=== PATIENT | female | born 1950 | race African-American/Black ===

== ENCOUNTER 2017-05-04 06:18 | Emergency (ER) | payer OTHER, SELFPAY ==
[~2017-05-04] VITALS: Ht 175.3 cm; Wt 71.0 kg
[2017-05-04] MEDS ORDERED: ACETAMINOPHEN 325MG TABLET PO ONE (09:15)
[2017-05-04 11:10] VITALS: BP 168/88
== END 2017-05-04 11:12 | disposition home or self-care (01) ==
LOC: ER 08:26
DX: M79.605 Pain in left leg (principal); M79.604 Pain in right leg; M54.5 Low back pain; M16.0 Bilateral primary osteoarthritis of hip; W11.XXXA Fall on and from ladder, initial encounter; Y92.098 Other place in other non-institutional residence as the place of occurrence of the external cause; I10 Essential (primary) hypertension; E11.9 Type 2 diabetes mellitus without complications; Z90.710 Acquired absence of both cervix and uterus
CPT/HCPCS: 72110; 72170; 73552; 73590; 99284

== ENCOUNTER 2018-07-29 07:29 | Emergency (ER) | payer MEDICARE, OTHER ==
[~2018-07-29] VITALS: Ht 175.3 cm; Wt 62.0 kg
[2018-07-29] MEDS ORDERED: SODIUM CHLORIDE 0.9% 1,000 ML IV ONE (08:37)
[2018-07-29 09:04] LABS: BG BASE EXCESS 0.9 mmol/L (-2.0-2.0); BG CARBOXYHEMOGLOBIN 0.9 % (0.5-1.5); BG DEOXYHEMOGLOBIN 4.1 % (0.0-5.0); BG FRACTION INSPIRED OXYGEN 21; BG HCO3 ACT 24.7 mmol/L (22.0-26.0); BG METHEMOGLOBIN 0.3 % (0.0-1.5); BG OXYGEN SATURATION 95.9 % (92.0-98.5); BG OXYHEMOGLOBIN 94.7 % (94.0-97.0); BG PCO2 36.2 mmHg (35.0-45.0); BG PH 7.452 (7.350-7.450); BG PO2 78.1 mmHg (75.0-100.0); BG SAMPLE SITE RIGHT RADIAL; BG TOTAL HEMOGLOBIN 10.3 g/dL (12.0-18.0); BG VENT MODE ROOM AIR
[2018-07-29 09:21] LABS: CHLORIDE 98 mEq/L (98-107)
[2018-07-29 09:57] VITALS: BP 127/58
== END 2018-07-29 10:29 | disposition home or self-care (01) ==
LOC: ER 07:29
DX: E11.65 Type 2 diabetes mellitus with hyperglycemia (principal); T38.3X5A Adverse effect of insulin and oral hypoglycemic [antidiabetic] drugs, initial encounter; I10 Essential (primary) hypertension; F12.10 Cannabis abuse, uncomplicated; Z88.2 Allergy status to sulfonamides; Z79.84 Long term (current) use of oral hypoglycemic drugs; Z85.9 Personal history of malignant neoplasm, unspecified; Y92.018 Other place in single-family (private) house as the place of occurrence of the external cause
CPT/HCPCS: 36415; 36600; 80048; 82375; 82805; 82962; 96360; 99284; J7030

== ENCOUNTER 2019-01-22 18:01 | Inpatient (IN) | payer MEDICARE ==
[~2019-01-22] VITALS: Ht 172.7 cm; Wt 45.8 kg
[~2019-01-22 18:01] MED LIST: metformin; novolin
[2019-01-22 19:07] LABS: MEAN CORPUSCULAR HEMOGLOBIN 21.2 pg (28.0-32.0); MEAN CORPUSCULAR VOLUME 64.1 fL (81.0-99.0); RED BLOOD CELL COUNT 2.72 mill/uL (4.2-5.4); RED CELL DISTRIBUTION WIDTH 19.5 % (11.6-14.6)
[2019-01-22 19:12] LABS: CHLORIDE 105 mEq/L (98-107)
[2019-01-22 19:17] LABS: ETHANOL BLOOD < 10 mg/dL
[2019-01-22 19:19] LABS: LDL CHOLESTEROL 67 mg/dL (5-100)
[2019-01-22 19:20] LABS: HEMOGLOBIN. 5.7 g/dL (12.0-16.0)
[2019-01-22 19:21] LABS: HEMATOCRIT. 17.4 % (36.0-48.0)
[2019-01-22 19:22] LABS: D-DIMER 10.62 mg/L FEU (<0.50); INR 1.2; PROTHROMBIN TIME 12.1 sec (9.6-11.0)
[2019-01-22] MEDS ORDERED: ACETAMINOPHEN 325MG TABLET PO ONE (20:30)
[2019-01-22] MEDS ORDERED: MAGNESIUM/ALUMINUM HYDROXIDE/SIMETHICONE 30ML UDC PO PRN (20:45)
[2019-01-22] MEDS ORDERED: DIPHENHYDRAMINE 50MG/ML VIAL IV PRN (20:45)
[2019-01-22] MEDS ORDERED: LORAZEPAM 2MG/ML CPJ IV PRN (20:45)
[2019-01-22] MEDS ORDERED: IPRATROPIUM/ALBUTEROL 0.5-3(2.5)MG/3ML NEB INH PRN (20:45)
[2019-01-22] MEDS ORDERED: DOCUSATE SODIUM 100MG CAPSULE PO PRN (20:45)
[2019-01-22] MEDS ORDERED: GUAIFENESIN 200MG/10ML SUGAR FREE UDC PO PRN (20:45)
[2019-01-22] MEDS ORDERED: DEXTROSE 50% WATER 50ML SYRINGE IV PRN (20:45)
[2019-01-22] MEDS ORDERED: ONDANSETRON HCL 4MG/2ML INJ IV PRN (20:45)
[2019-01-22] MEDS ORDERED: HYDROMORPHONE HCL/PF 2MG/ML CPJ IV PRN (20:45)
[2019-01-22] MEDS ORDERED: HYDRALAZINE 20MG/ML VIAL IV PRN (20:45)
[2019-01-22] MEDS ORDERED: ACETAMINOPHEN 325MG TABLET PO PRN (20:45)
[2019-01-22 20:48] LABS: NUCLEATED RED BLOOD CELLS 2 /100 WBC
[2019-01-22 20:52] LABS: PLATELET ESTIMATE NORMAL
[2019-01-22 20:56] LABS: MEAN PLATELET VOLUME 8.5 fl (7.4-10.4); PLATELET 155 x1000/uL (130-400)
[2019-01-22 22:59] LABS: CREATINE KINASE 254 IU/L (26-192)
[2019-01-22 23:01] LABS: CREATINE KINASE MB FRACTION < 1.0 ng/mL (0.5-3.6)
[2019-01-22 23:52] VITALS: BP 148/82
[2019-01-23] VITALS (12 sets, daily range): BP systolic 135–169; BP diastolic 63–84
[2019-01-23] MEDS ORDERED: SODIUM CHLORIDE 0.9% INJ 3ML FLUSH IVF SCH
[2019-01-23] MEDS: HYDROCODONE/ACETAMINOPHEN 5/325MG TABLET PO PRN ×4 (00:28→20:43)
[2019-01-23 03:51] LABS: BASOPHILS % 0.2 % (0.0-2.0); EOSINOPHILS % 0.1 % (0.0-5.0); LYMPHOCYTES % 10.1 % (20.0-50.0); MEAN CORPUSCULAR HEMOGLOBIN 22.4 pg (28.0-32.0); MEAN PLATELET VOLUME 8.4 fl (7.4-10.4); NEUTROPHILS % 84.6 % (40.0-76.0); PLATELET 138 x1000/uL (130-400); RED BLOOD CELL COUNT 2.93 mill/uL (4.2-5.4); RED CELL DISTRIBUTION WIDTH 22.7 % (11.6-14.6)
[2019-01-23 03:57] LABS: CHLORIDE 110 mEq/L (98-107)
[2019-01-23 04:00] LABS: HEMATOCRIT. 19.9 % (36.0-48.0); HEMOGLOBIN. 6.6 g/dL (12.0-16.0)
[2019-01-23 04:08] LABS: CREATINE KINASE 225 IU/L (26-192)
[2019-01-23 04:09] LABS: CREATINE KINASE MB FRACTION < 1.0 ng/mL (0.5-3.6)
[2019-01-23] MEDS: SODIUM CHLORIDE 0.9% INJ 3ML FLUSH IVF SCH ×3 (04:15→20:43)
[2019-01-23 04:21] LABS: PLATELET ESTIMATE NORMAL
[2019-01-23] MEDS: BLOOD SUGAR DIAGNOSTIC STRIP TEST SCH ×4 (05:47→20:43)
[2019-01-23 06:13] LABS: CLARITY URINE CLEAR (CLEAR); COLOR URINE YELLOW (YELLOW); KETONES URINE 1+ (NEGATIVE); LEUKOCYTE ESTERASE URINE 2+ (NEGATIVE); NITRITE URINE NEGATIVE (NEGATIVE); OCCULT BLOOD URINE NEGATIVE (NEGATIVE); PROTEIN URINE TRACE (NEGATIVE); SPECIFIC GRAVITY URINE 1.021 (1.005-1.030)
[2019-01-23 06:30] LABS: *AMPHETAMINES SCREEN URINE NEGATIVE (NEGATIVE); *BARBITURATES SCREEN URINE NEGATIVE (NEGATIVE); *BENZODIAZEPINES SCREEN URINE NEGATIVE (NEGATIVE); *COCAINE SCREEN URINE NEGATIVE (NEGATIVE); CANNABINOID URINE SCREEN PRESUMTIVE POSITIVE (NEGATIVE); METHADONE URINE SCREEN NEGATIVE (NEGATIVE); OPIATES URINE SCREEN PRESUMTIVE POSITIVE (NEGATIVE); PHENCYCLIDINE URINE SCREEN NEGATIVE (NEGATIVE)
[2019-01-23] MEDS: INSULIN LISPRO 100 UNITS/ML SUBCUT SCH ×4 (08:10→21:38)
[2019-01-23 13:44] LABS: HEMATOCRIT 22.4 % (36.0-48.0); HEMOGLOBIN 7.6 g/dL (12.0-16.0)
[2019-01-23] MEDS ORDERED: GADOBENATE DIMEGLUMINE 529 MG/ML 10ML IV ONE (14:01)
[2019-01-23] MEDS ORDERED: SORBITOL 70% SOLN 30ML PO SCH ×2 (18:15→22:00)
[2019-01-23] MEDS: POLYVINYL ALCOHOL OPHTH DROPS 15ML RIGHTEYE SCH ×2 (18:50→20:43)
[2019-01-23] MEDS ORDERED: DIATR MEGLU/DIATRIZOATE SOLN 30ML PO NR (20:30)
[2019-01-23] MEDS: CLONIDINE 0.1MG TABLET PO PRN (20:43)
[2019-01-23] MEDS: PANTOPRAZOLE SODIUM 40 MG/VIAL IV SCH (20:43)
[2019-01-24] VITALS: BP 148/81
[2019-01-24 04:00] VITALS: BP 129/70
[2019-01-24] MEDS: BLOOD SUGAR DIAGNOSTIC STRIP TEST SCH ×4 (05:33→21:00)
[2019-01-24] MEDS: SODIUM CHLORIDE 0.9% INJ 3ML FLUSH IVF SCH ×3 (05:34→22:18)
[2019-01-24] MEDS: INSULIN LISPRO 100 UNITS/ML SUBCUT SCH ×4 (05:49→22:31)
[2019-01-24] MEDS ORDERED: DIATR MEGLU/DIATRIZOATE SOLN 30ML PO SCH (06:35)
[2019-01-24 08:00] VITALS: BP 132/70
[2019-01-24] MEDS: POLYVINYL ALCOHOL OPHTH DROPS 15ML RIGHTEYE SCH ×4 (08:08→22:17)
[2019-01-24] MEDS: PANTOPRAZOLE SODIUM 40 MG/VIAL IV SCH ×2 (08:08→22:17)
[2019-01-24] MEDS ORDERED: IOHEXOL-300 100 ML BOTTLE ONE (09:33)
[2019-01-24 10:36] LABS: INR 1.3; PROTHROMBIN TIME 12.7 sec (9.6-11.0)
[2019-01-24 10:46] LABS: CHLORIDE 111 mEq/L (98-107)
[2019-01-24] MEDS ORDERED: POTASSIUM CHLORIDE 20MEQ TABLET SR PO SCH (11:45)
[2019-01-24] MEDS ORDERED: METOCLOPRAMIDE HCL 10MG/2ML VIAL IV SCH (11:45)
[2019-01-24 12:00] VITALS: BP 115/85
[2019-01-24 16:00] VITALS: BP 175/82
[2019-01-24] MEDS ORDERED: MIDAZOLAM HCL 5 MG/5 ML VIAL ONE (16:59)
[2019-01-24] MEDS ORDERED: FENTANYL CITRATE/PF 50MCG/ML 2ML VIAL ONE (16:59)
[2019-01-24] MEDS ORDERED: MIDAZOLAM HCL 5 MG/5 ML VIAL IV PRN (17:00)
[2019-01-24] MEDS: CLONIDINE 0.1MG TABLET PO PRN (18:37)
[2019-01-24] MEDS: HYDROCODONE/ACETAMINOPHEN 5/325MG TABLET PO PRN ×2 (18:38→22:39)
[2019-01-24 20:00] VITALS: BP 113/68
[2019-01-25] VITALS (8 sets, daily range): BP systolic 132–158; BP diastolic 70–84
[2019-01-25] MEDS: HYDROCODONE/ACETAMINOPHEN 5/325MG TABLET PO PRN ×4 (04:17→22:42)
[2019-01-25] MEDS: SODIUM CHLORIDE 0.9% INJ 3ML FLUSH IVF SCH ×3 (05:41→22:00)
[2019-01-25 06:04] LABS: BASOPHILS % 0.2 % (0.0-2.0); EOSINOPHILS % 0.2 % (0.0-5.0); HEMATOCRIT. 21.6 % (36.0-48.0); HEMOGLOBIN. 7.1 g/dL (12.0-16.0); LYMPHOCYTES % 13.6 % (20.0-50.0); MEAN CORPUSCULAR HEMOGLOBIN 23.1 pg (28.0-32.0); MEAN CORPUSCULAR VOLUME 70.3 fL (81.0-99.0); MONOCYTES % 5.2 % (2.0-8.0); NEUTROPHILS % 80.8 % (40.0-76.0); RED BLOOD CELL COUNT 3.08 mill/uL (4.2-5.4); RED CELL DISTRIBUTION WIDTH 23.6 % (11.6-14.6)
[2019-01-25] MEDS: BLOOD SUGAR DIAGNOSTIC STRIP TEST SCH ×4 (06:24→21:00)
[2019-01-25 06:30] LABS: CHLORIDE 110 mEq/L (98-107)
[2019-01-25] MEDS: PANTOPRAZOLE SODIUM 40 MG/VIAL IV SCH ×2 (10:11→22:00)
[2019-01-25] MEDS: INSULIN LISPRO 100 UNITS/ML SUBCUT SCH ×4 (10:12→22:41)
[2019-01-25] MEDS: POLYVINYL ALCOHOL OPHTH DROPS 15ML RIGHTEYE SCH ×4 (10:12→22:00)
[2019-01-25 10:34] LABS: PLATELET 84 x1000/uL (130-400)
[2019-01-26] VITALS (10 sets, daily range): BP systolic 124–163; BP diastolic 71–92
[2019-01-26] MEDS: SODIUM CHLORIDE 0.9% INJ 3ML FLUSH IVF SCH ×2 (06:04→13:37)
[2019-01-26] MEDS: BLOOD SUGAR DIAGNOSTIC STRIP TEST SCH ×2 (06:04→11:55)
[2019-01-26] MEDS: HYDROCODONE/ACETAMINOPHEN 5/325MG TABLET PO PRN ×2 (06:07→09:34)
[2019-01-26 07:29] LABS: INR 1.3
[2019-01-26 07:47] LABS: HEMATOCRIT 27.2 % (36.0-48.0); HEMOGLOBIN 9.1 g/dL (12.0-16.0); MEAN CORPUSCULAR HEMOGLOBIN 24.1 pg (28.0-32.0); MEAN CORPUSCULAR VOLUME 71.7 fL (81.0-99.0); RED CELL DISTRIBUTION WIDTH 23.5 % (11.6-14.6)
[2019-01-26] MEDS: POLYVINYL ALCOHOL OPHTH DROPS 15ML RIGHTEYE SCH ×2 (08:29→12:47)
[2019-01-26] MEDS: PANTOPRAZOLE SODIUM 40 MG/VIAL IV SCH (08:29)
[2019-01-26] MEDS: CLONIDINE 0.1MG TABLET PO PRN (08:30)
[2019-01-26] MEDS: INSULIN LISPRO 100 UNITS/ML SUBCUT SCH ×2 (08:38→12:48)
[2019-01-26 14:46] LABS: PLATELET 72 x1000/uL (130-400)
== END 2019-01-26 15:19 | disposition home or self-care (01) | DRG 123 ==
LOC: EDBEDREQ 18:35 → ER 19:16 → 7WST 19:46 → EDBEDREQSVC 19:52 → EDBEDREQTM 19:52 → EDBEDREQ 19:52 → ENRESERV 22:18
PROVIDERS: ADMIT Internal Medicine; ATTEND Internal Medicine
PROC: 30233N1 Transfusion of Nonautologous Red Blood Cells into Peripheral Vein, Percutaneous Approach (ICD-10-PCS; principal; 2019-01-22)
PROC: 0DB68ZX Excision of Stomach, Via Natural or Artificial Opening Endoscopic, Diagnostic (ICD-10-PCS; 2019-01-24)
PROC: 0DJD8ZZ Inspection of Lower Intestinal Tract, Via Natural or Artificial Opening Endoscopic (ICD-10-PCS; 2019-01-24)
DX: H49.01 Third [oculomotor] nerve palsy, right eye (principal); E43 Unspecified severe protein-calorie malnutrition; C79.51 Secondary malignant neoplasm of bone; C78.7 Secondary malignant neoplasm of liver and intrahepatic bile duct; J90 Pleural effusion, not elsewhere classified; Z68.1 Body mass index [BMI] 19.9 or less, adult; H02.401 Unspecified ptosis of right eyelid; D50.9 Iron deficiency anemia, unspecified; I10 Essential (primary) hypertension; E11.9 Type 2 diabetes mellitus without complications; C50.919 Malignant neoplasm of unspecified site of unspecified female breast; H70.92 Unspecified mastoiditis, left ear; K44.9 Diaphragmatic hernia without obstruction or gangrene; K64.8 Other hemorrhoids; K59.00 Constipation, unspecified; K80.20 Calculus of gallbladder without cholecystitis without obstruction; N20.0 Calculus of kidney; N28.1 Cyst of kidney, acquired; M19.90 Unspecified osteoarthritis, unspecified site; Z85.3 Personal history of malignant neoplasm of breast; Z86.73 Personal history of transient ischemic attack (TIA), and cerebral infarction without residual deficits; Z79.899 Other long term (current) drug therapy; Z88.2 Allergy status to sulfonamides; Z88.8 Allergy status to other drugs, medicaments and biological substances; Z92.21 Personal history of antineoplastic chemotherapy; K29.70 Gastritis, unspecified, without bleeding
CPT/HCPCS: 36415; 36430; 70540; 70553; 71045; 71260; 74177; 80048; 80305; 80320; 82465; 82550; 82553; 82962; 83036; 83721; 83880; 84443; 84484; 85014; 85018; 85027; 85379; 85384; 86850; 86900; 86920; 88305; 88312; 88313; 93005; 93970; 97116; 97162; 97530; 99152; 99285; A9577; C9113; J1815; J2250; J2765; J3010; J7040; J7050; P9016; Q9963; Q9967; G0480; G0500

== ENCOUNTER 2019-02-12 13:30 | Inpatient (IN) | payer MEDICARE, OTHER ==
[~2019-02-12] VITALS: Ht 165.1 cm; Wt 66.2 kg
[2019-02-12] MEDS ORDERED: NOREPINEPHRINE 4 MG in DEXT 5% WATER 250 ML IV STA (13:47)
[2019-02-12] MEDS ORDERED: NOREPINEPHRINE 4MG/250ML PMX 250 ML IV ONE ×2 (14:00→18:53)
[2019-02-12] MEDS ORDERED: SODIUM CHLORIDE 0.9% 1000ML BAG (SEPSIS BOLUS) IV ONE (14:00)
[2019-02-12] MEDS ORDERED: VECURONIUM BROMIDE 10 MG/VIAL IV ONE ×2 (14:04→15:00)
[2019-02-12] MEDS ORDERED: SUCCINYLCHOLINE CHLORIDE 200MG/10ML IV ONE ×2 (14:04→14:30)
[2019-02-12] MEDS ORDERED: ETOMIDATE 2MG/ML 10ML VIAL IV ONE ×2 (14:04→14:30)
[2019-02-12] MEDS ORDERED: PROPOFOL 10MG/ML 100ML 100 ML IV ONE (14:30)
[2019-02-12] MEDS ORDERED: LEVOFLOXACIN 500MG PREMIX 100 ML IV ONE (14:30)
[2019-02-12] MEDS ORDERED: PIPERACILLIN/TAZ 3.375G PREMIX 50 ML IV ONE (14:30)
[2019-02-12] MEDS ORDERED: MORPHINE SULFATE 10 MG/ML CPJ IV ONE (14:30)
[2019-02-12 14:35] LABS: BG BASE EXCESS -13.8 mmol/L (-2.0-2.0); BG CARBOXYHEMOGLOBIN 1.6 % (0.5-1.5); BG DEOXYHEMOGLOBIN 0.2 % (0.0-5.0); BG HCO3 ACT 12.1 mmol/L (22.0-26.0); BG METHEMOGLOBIN 0.3 % (0.0-1.5); BG OXYGEN SATURATION 99.8 % (92.0-98.5); BG OXYHEMOGLOBIN 97.9 % (94.0-97.0); BG PCO2 27.6 mmHg (35.0-45.0); BG PH 7.258 (7.350-7.450); BG PO2 419.7 mmHg (75.0-100.0); BG SAMPLE SITE RIGHT RADIAL; BG TIDAL VOLUME(mL) 450 mL; BG TOTAL HEMOGLOBIN 4.7 g/dL (12.0-18.0); BG VENT MODE VENT - A/C; BG VENT RATE 14 set
[2019-02-12 14:38] LABS: CHLORIDE 111 mEq/L (98-107)
[2019-02-12 14:39] LABS: MEAN CORPUSCULAR HEMOGLOBIN 24.4 pg (28.0-32.0); MEAN CORPUSCULAR VOLUME 75.4 fL (81.0-99.0); MEAN PLATELET VOLUME 8.6 fl (7.4-10.4); RED BLOOD CELL COUNT 1.97 mill/uL (4.2-5.4); RED CELL DISTRIBUTION WIDTH 25.5 % (11.6-14.6)
[2019-02-12 14:40] LABS: INR 1.5; PARTIAL THROMBOPLASTIN TIME 23.1 sec (23.4-31.0); PROTHROMBIN TIME 14.8 sec (9.6-11.0)
[2019-02-12 14:41] LABS: HEMATOCRIT. 14.9 % (36.0-48.0); HEMOGLOBIN. 4.8 g/dL (12.0-16.0); PLATELET 38 x1000/uL (130-400)
[2019-02-12] MEDS ORDERED: SODIUM BICARBONATE 8.4% 1 MEQ/ML 50ML SYR IV ONE (14:45)
[2019-02-12] MEDS ORDERED: PANTOPRAZOLE SODIUM 40 MG/VIAL IV NR (15:00)
[2019-02-12] MEDS ORDERED: PHYTONADIONE 10MG/ML AMP IM ONE (15:15)
[2019-02-12] MEDS ORDERED: SODIUM CHLORIDE 0.9% 1,000 ML IV SCH (15:26)
[2019-02-12] MEDS ORDERED: OCTREOTIDE 1,000 MCG in SODIUM CHLORIDE 0.9% 100 ML IV PRN (15:30)
[2019-02-12] MEDS ORDERED: ACETAMINOPHEN 325MG TABLET PO PRN (15:30)
[2019-02-12] MEDS ORDERED: ACETAMINOPHEN 650MG SUPP PR PRN (15:30)
[2019-02-12] MEDS ORDERED: DOCUSATE SODIUM 100MG CAPSULE PO PRN (15:30)
[2019-02-12] MEDS ORDERED: IPRATROPIUM/ALBUTEROL 0.5-3(2.5)MG/3ML NEB INH PRN (15:30)
[2019-02-12] MEDS ORDERED: PIPERACILLIN/TAZ 3.375G PREMIX 50 ML IV SCH (15:30)
[2019-02-12] MEDS ORDERED: ACETAMINOPHEN 650MG/20.3ML UDC GT PRN (15:30)
[2019-02-12] MEDS ORDERED: IPRATROPIUM/ALBUTEROL 0.5-3(2.5)MG/3ML NEB INH SCH (15:30)
[2019-02-12] MEDS ORDERED: DIPHENHYDRAMINE 50MG/ML VIAL IV PRN (15:30)
[2019-02-12] MEDS ORDERED: CLONIDINE 0.1MG TABLET PO PRN (15:30)
[2019-02-12] MEDS ORDERED: GUAIFENESIN 200MG/10ML SUGAR FREE UDC PO PRN (15:30)
[2019-02-12] MEDS ORDERED: SODIUM BICARBONATE 50 MEQ in DEXTROSE 5% WATER 1,000 ML IV SCH (15:30)
[2019-02-12] MEDS ORDERED: MAGNESIUM/ALUMINUM HYDROXIDE/SIMETHICONE 30ML UDC PO PRN (15:30)
[2019-02-12] MEDS ORDERED: NOREPINEPHRINE 4 MG in DEXT 5% WATER 246 ML IV PRN (15:30)
[2019-02-12] MEDS ORDERED: ONDANSETRON HCL 4MG/2ML INJ IV PRN (15:30)
[2019-02-12 16:28] LABS: NUCLEATED RED BLOOD CELLS 4 /100 WBC; PLATELET ESTIMATE MARKEDLY DECREASED
[2019-02-12] MEDS ORDERED: NOREPINEPHRINE 4MG/250ML PMX 250 ML IV PRN (18:54)
[2019-02-12 18:56] LABS: HEMATOCRIT 25.9 % (36.0-48.0); HEMOGLOBIN 8.6 g/dL (12.0-16.0); MEAN CORPUSCULAR HEMOGLOBIN 25.9 pg (28.0-32.0); MEAN CORPUSCULAR VOLUME 77.9 fL (81.0-99.0); RED BLOOD CELL COUNT 3.32 mill/uL (4.2-5.4); RED CELL DISTRIBUTION WIDTH 20.6 % (11.6-14.6)
[2019-02-12 18:58] LABS: CHLORIDE 111 mEq/L (98-107)
[2019-02-12 19:09] LABS: PLATELET 24 x1000/uL (130-400)
[2019-02-12] MEDS ORDERED: SODIUM BICARBONATE 100 MEQ in DEXTROSE 5% WATER 1,000 ML IV SCH (20:45)
[2019-02-12] MEDS ORDERED: NA PHOS,M-B/NA PHOS,DI-BA ENEMA 118ML PR PRN (21:00)
[2019-02-12 21:05] LABS: BG CARBOXYHEMOGLOBIN 1.2 % (0.5-1.5); BG DEOXYHEMOGLOBIN 3.5 % (0.0-5.0); BG FRACTION INSPIRED OXYGEN 40; BG HCO3 ACT 18.8 mmol/L (22.0-26.0); BG METHEMOGLOBIN 0.2 % (0.0-1.5); BG OXYGEN SATURATION 96.5 % (92.0-98.5); BG OXYHEMOGLOBIN 95.1 % (94.0-97.0); BG PCO2 34.6 mmHg (35.0-45.0); BG PH 7.352 (7.350-7.450); BG PO2 87.2 mmHg (75.0-100.0); BG SAMPLE SITE RIGHT RADIAL; BG TIDAL VOLUME(mL) 450 mL; BG TOTAL HEMOGLOBIN 12.2 g/dL (12.0-18.0); BG VENT MODE VENT - A/C; BG VENT RATE 12 set
[2019-02-12] MEDS ORDERED: METRONIDAZOLE 500 MG PREMIX 100 ML IV SCH (22:00)
[2019-02-12 23:15] VITALS: BP 118/67
[2019-02-12 23:30] VITALS: BP 116/68
[2019-02-12] MEDS ORDERED: NOREPINEPHRINE 4 MG in DEXTROSE 5% WATER 250 ML IV PRN (23:30)
[2019-02-12 23:45] VITALS: BP 119/64
[2019-02-12] MEDS ORDERED: PROPOFOL 10MG/ML 100ML 100 ML IV PRN (23:45)
[2019-02-13] VITALS (93 sets, daily range): BP systolic 93–130; BP diastolic 59–81
[2019-02-13] MEDS ORDERED: IPRATROPIUM/ALBUTEROL 0.5-3(2.5)MG/3ML NEB INH SCH
[2019-02-13] MEDS: METRONIDAZOLE 500 MG PREMIX 100 ML IV SCH ×4 (00:22→23:56)
[2019-02-13] MEDS: IPRATROPIUM/ALBUTEROL 0.5-3(2.5)MG/3ML NEB HHN SCH ×6 (00:23→20:49)
[2019-02-13] MEDS ORDERED: OCTREOTIDE 1,000 MCG in SODIUM CHLORIDE 0.9% 100 ML IV SCH (01:00)
[2019-02-13] MEDS: OCTREOTIDE 1,000 MCG in SODIUM CHLORIDE 0.9% 98 ML IV SCH (01:16)
[2019-02-13] MEDS ORDERED: VANCOMYCIN 1 G PREMIX 200 ML IV NR (03:00)
[2019-02-13] MEDS: PIPERACILLIN/TAZ 3.375G PREMIX 50 ML IV SCH ×3 (03:04→17:48)
[2019-02-13 05:41] LABS: HEMATOCRIT. 33.9 % (36.0-48.0); HEMOGLOBIN. 11.7 g/dL (12.0-16.0); MEAN CORPUSCULAR HEMOGLOBIN 27.4 pg (28.0-32.0); MEAN CORPUSCULAR VOLUME 79.9 fL (81.0-99.0); RED BLOOD CELL COUNT 4.25 mill/uL (4.2-5.4); RED CELL DISTRIBUTION WIDTH 18.2 % (11.6-14.6)
[2019-02-13] MEDS: SODIUM CHLORIDE 0.9% INJ 3ML FLUSH IVF SCH ×3 (05:58→22:11)
[2019-02-13 06:12] LABS: CHLORIDE 110 mEq/L (98-107)
[2019-02-13 06:32] LABS: HDL CHOLESTEROL 20 mg/dL (40-59)
[2019-02-13 06:35] LABS: LDL CHOLESTEROL 44 mg/dL (5-100)
[2019-02-13 07:20] LABS: BG CARBOXYHEMOGLOBIN 1.2 % (0.5-1.5); BG DEOXYHEMOGLOBIN 2.1 % (0.0-5.0); BG HCO3 ACT 18.6 mmol/L (22.0-26.0); BG METHEMOGLOBIN 0.2 % (0.0-1.5); BG OXYGEN SATURATION 97.9 % (92.0-98.5); BG OXYHEMOGLOBIN 96.5 % (94.0-97.0); BG PCO2 30.1 mmHg (35.0-45.0); BG PH 7.409 (7.350-7.450); BG PO2 117.3 mmHg (75.0-100.0); BG SAMPLE SITE A-LINE; BG TIDAL VOLUME(mL) 450 mL; BG TOTAL HEMOGLOBIN 11.6 g/dL (12.0-18.0); BG VENT MODE VENT - A/C; BG VENT RATE 12 set
[2019-02-13] MEDS ORDERED: FAMOTIDINE 20MG/2ML VIAL IV SCH (09:00)
[2019-02-13 09:23] LABS: NUCLEATED RED BLOOD CELLS 10 /100 WBC; PLATELET ESTIMATE MARKEDLY DECREASED
[2019-02-13] MEDS ORDERED: DEXTROSE 50% WATER 50ML SYRINGE IV PRN (10:30)
[2019-02-13] MEDS: SODIUM CHLORIDE 0.45% 1,000 ML IV SCH ×2 (10:41→23:56)
[2019-02-13] MEDS ORDERED: INSULIN GLARGINE UD 100 UNITS/ML SYR SUBCUT NR (12:00)
[2019-02-13] MEDS: BLOOD SUGAR DIAGNOSTIC STRIP TEST SCH ×3 (12:00→23:58)
[2019-02-13] MEDS: INSULIN LISPRO 100 UNITS/ML SUBCUT SCH ×2 (12:15→18:13)
[2019-02-13] MEDS: VANCOMYCIN 1 G PREMIX 200 ML IV SCH (12:15)
[2019-02-13] MEDS ORDERED: BLOOD SUGAR DIAGNOSTIC STRIP TEST SCH (12:50)
[2019-02-13] MEDS ORDERED: INSULIN LISPRO 100 UNITS/ML SUBCUT SCH (13:20)
[2019-02-13] MEDS: FENTANYL CITRATE/PF 500 MCG in SODIUM CHLORIDE 0.9% 40 ML IV PRN (13:45)
[2019-02-13 14:54] LABS: HEMATOCRIT 34.5 % (36.0-48.0); HEMOGLOBIN 11.9 g/dL (12.0-16.0)
[2019-02-13 14:54] LABS: CLARITY URINE CLEAR (CLEAR); COLOR URINE YELLOW (YELLOW); KETONES URINE NEGATIVE (NEGATIVE); LEUKOCYTE ESTERASE URINE TRACE (NEGATIVE); NITRITE URINE NEGATIVE (NEGATIVE); OCCULT BLOOD URINE TRACE (NEGATIVE); PROTEIN URINE TRACE (NEGATIVE); SPECIFIC GRAVITY URINE 1.023 (1.005-1.030)
[2019-02-13] MEDS: PANTOPRAZOLE 80 MG in SODIUM CHLORIDE 0.9% 100 ML IV SCH (17:38)
[2019-02-13] MEDS ORDERED: PROPOFOL 10MG/ML 100ML 100 ML IV PRN (23:59)
[2019-02-14] VITALS (96 sets, daily range): BP systolic 92–124; BP diastolic 55–76
[2019-02-14] MEDS: IPRATROPIUM/ALBUTEROL 0.5-3(2.5)MG/3ML NEB HHN SCH ×6 (00:36→20:09)
[2019-02-14] MEDS: PIPERACILLIN/TAZ 3.375G PREMIX 50 ML IV SCH ×3 (01:30→18:15)
[2019-02-14] MEDS: PANTOPRAZOLE 80 MG in SODIUM CHLORIDE 0.9% 100 ML IV SCH ×3 (01:30→23:06)
[2019-02-14] MEDS: VANCOMYCIN 1 G PREMIX 200 ML IV SCH (05:24)
[2019-02-14] MEDS: BLOOD SUGAR DIAGNOSTIC STRIP TEST SCH ×3 (05:24→18:11)
[2019-02-14] MEDS: SODIUM CHLORIDE 0.9% INJ 3ML FLUSH IVF SCH ×3 (05:24→22:03)
[2019-02-14] MEDS: INSULIN LISPRO 100 UNITS/ML SUBCUT SCH ×4 (05:24→18:15)
[2019-02-14 06:07] LABS: HEMATOCRIT. 37.7 % (36.0-48.0); MEAN CORPUSCULAR HEMOGLOBIN 28.1 pg (28.0-32.0); MEAN CORPUSCULAR VOLUME 81.5 fL (81.0-99.0); MEAN PLATELET VOLUME 10.9 fl (7.4-10.4); RED BLOOD CELL COUNT 4.62 mill/uL (4.2-5.4)
[2019-02-14 06:10] LABS: CHLORIDE 110 mEq/L (98-107)
[2019-02-14 06:13] LABS: PLATELET 17 x1000/uL (130-400)
[2019-02-14 06:19] LABS: PHOSPHORUS 2.1 mg/dL (2.5-4.9)
[2019-02-14] MEDS: OCTREOTIDE 1,000 MCG in SODIUM CHLORIDE 0.9% 98 ML IV SCH (06:19)
[2019-02-14 07:33] LABS: PLATELET 17 x1000/uL (130-400)
[2019-02-14 08:31] LABS: BG BASE EXCESS -1.3 mmol/L (-2.0-2.0); BG DEOXYHEMOGLOBIN 3.1 % (0.0-5.0); BG FRACTION INSPIRED OXYGEN 40; BG HCO3 ACT 21.5 mmol/L (22.0-26.0); BG METHEMOGLOBIN 0.2 % (0.0-1.5); BG OXYGEN SATURATION 96.9 % (92.0-98.5); BG OXYHEMOGLOBIN 95.7 % (94.0-97.0); BG PCO2 30.2 mmHg (35.0-45.0); BG PH 7.471 (7.350-7.450); BG PO2 89.4 mmHg (75.0-100.0); BG SAMPLE SITE RIGHT RADIAL; BG TIDAL VOLUME(mL) 450 mL; BG TOTAL HEMOGLOBIN 11.5 g/dL (12.0-18.0); BG VENT MODE VENT - A/C; BG VENT RATE 12 set
[2019-02-14] MEDS: METRONIDAZOLE 500 MG PREMIX 100 ML IV SCH (09:15)
[2019-02-14] MEDS ORDERED: KCL 20MEQ/100ML PREMIX 100 ML IV ONE (10:45)
[2019-02-14] MEDS ORDERED: FUROSEMIDE 40MG/4ML VIAL IVP NR (10:45)
[2019-02-14] MEDS ORDERED: MAGNESIUM 2 G PREMIX 50 ML IV NR (11:00)
[2019-02-14] MEDS ORDERED: MORPHINE SULFATE 10 MG/ML CPJ ONE (11:08)
[2019-02-14] MEDS: DEXT 5%/0.45% NACL KCL 20MEQ/L 1,000 ML IV SCH ×2 (11:47→23:26)
[2019-02-14] MEDS ORDERED: POTASSIUM PHOS,M-BASIC-D-BASIC 20 MMOL in DEXT 5% WATER 243.3333 ML IV NR (12:00)
[2019-02-14] MEDS: [UNRECOGNIZED DRUG - REMARK] IV SCH ×5 (15:30)
[2019-02-14] MEDS: MICAFUNGIN 100 MG in SODIUM CHLORIDE 0.9% 100 ML IV SCH (16:31)
[2019-02-14 17:38] LABS: NUCLEATED RED BLOOD CELLS 15 /100 WBC; PLATELET ESTIMATE MARKEDLY DECREASED
[2019-02-14] MEDS: FENTANYL CITRATE/PF 500 MCG in SODIUM CHLORIDE 0.9% 40 ML IV PRN (18:28)
[2019-02-14] MEDS: VANCOMYCIN 750 MG PREMIX 150 ML IV SCH (20:36)
[2019-02-15] VITALS (95 sets, daily range): BP systolic 87–123; BP diastolic 54–70
[2019-02-15] MEDS: INSULIN LISPRO 100 UNITS/ML SUBCUT SCH ×4 (00:01→18:48)
[2019-02-15] MEDS: IPRATROPIUM/ALBUTEROL 0.5-3(2.5)MG/3ML NEB HHN SCH ×5 (00:18→20:04)
[2019-02-15] MEDS: BLOOD SUGAR DIAGNOSTIC STRIP TEST SCH ×4 (00:21→18:45)
[2019-02-15] MEDS: PIPERACILLIN/TAZ 3.375G PREMIX 50 ML IV SCH ×3 (01:40→18:47)
[2019-02-15] MEDS: SODIUM CHLORIDE 0.9% INJ 3ML FLUSH IVF SCH ×3 (05:25→22:11)
[2019-02-15 05:49] LABS: EOSINOPHILS % 0.9 % (0.0-5.0); HEMATOCRIT. 30.1 % (36.0-48.0); HEMOGLOBIN. 10.6 g/dL (12.0-16.0); MEAN CORPUSCULAR HEMOGLOBIN 27.7 pg (28.0-32.0); MEAN CORPUSCULAR VOLUME 78.4 fL (81.0-99.0); MEAN PLATELET VOLUME 9.1 fl (7.4-10.4); MONOCYTES % 2.8 % (2.0-8.0); NEUTROPHILS % 74.3 % (40.0-76.0); RED BLOOD CELL COUNT 3.84 mill/uL (4.2-5.4); RED CELL DISTRIBUTION WIDTH 19.6 % (11.6-14.6)
[2019-02-15 05:56] LABS: INR 1.3; PARTIAL THROMBOPLASTIN TIME 32.7 sec (23.4-31.0); PROTHROMBIN TIME 13.3 sec (9.6-11.0)
[2019-02-15 06:08] LABS: CHLORIDE 108 mEq/L (98-107)
[2019-02-15 06:14] LABS: PHOSPHORUS 3.3 mg/dL (2.5-4.9)
[2019-02-15 06:50] LABS: PLATELET 30 x1000/uL (130-400)
[2019-02-15] MEDS: VANCOMYCIN 750 MG PREMIX 150 ML IV SCH ×2 (08:18→20:42)
[2019-02-15] MEDS: PANTOPRAZOLE 80 MG in SODIUM CHLORIDE 0.9% 100 ML IV SCH (08:20)
[2019-02-15] MEDS: DEXT 5%/0.45% NACL KCL 30MEQ/L 1,000 ML IV SCH (10:35)
[2019-02-15] MEDS: INSULIN GLARGINE UD 100 UNITS/ML SYR SUBCUT SCH (10:42)
[2019-02-15] MEDS: MICAFUNGIN 100 MG in SODIUM CHLORIDE 0.9% 100 ML IV SCH (15:19)
[2019-02-15] MEDS: [UNRECOGNIZED DRUG - REMARK] IV SCH ×5 (16:25)
[2019-02-16] VITALS (90 sets, daily range): BP systolic 37–118; BP diastolic 14–68
[2019-02-16] MEDS: BLOOD SUGAR DIAGNOSTIC STRIP TEST SCH ×5 (00:28→23:42)
[2019-02-16] MEDS: INSULIN LISPRO 100 UNITS/ML SUBCUT SCH ×5 (00:28→23:46)
[2019-02-16] MEDS: DEXT 5%/0.45% NACL KCL 30MEQ/L 1,000 ML IV SCH ×2 (00:29→13:41)
[2019-02-16] MEDS: FENTANYL CITRATE/PF 500 MCG in SODIUM CHLORIDE 0.9% 40 ML IV PRN (01:20)
[2019-02-16] MEDS: PIPERACILLIN/TAZ 3.375G PREMIX 50 ML IV SCH ×3 (01:50→18:22)
[2019-02-16] MEDS: IPRATROPIUM/ALBUTEROL 0.5-3(2.5)MG/3ML NEB HHN SCH ×4 (02:05→21:02)
[2019-02-16] MEDS: SODIUM CHLORIDE 0.9% INJ 3ML FLUSH IVF SCH ×3 (05:42→21:02)
[2019-02-16 06:01] LABS: HEMATOCRIT. 28.8 % (36.0-48.0); MEAN CORPUSCULAR HEMOGLOBIN 27.6 pg (28.0-32.0); MEAN CORPUSCULAR VOLUME 79.7 fL (81.0-99.0); MEAN PLATELET VOLUME 7.3 fl (7.4-10.4); RED BLOOD CELL COUNT 3.61 mill/uL (4.2-5.4); RED CELL DISTRIBUTION WIDTH 19.7 % (11.6-14.6)
[2019-02-16 06:02] LABS: CHLORIDE 109 mEq/L (98-107)
[2019-02-16 06:19] LABS: PLATELET 14 x1000/uL (130-400)
[2019-02-16 06:24] LABS: PHOSPHORUS 3.2 mg/dL (2.5-4.9)
[2019-02-16 07:43] LABS: ATYPICAL LYMPHOCYTES 1; NUCLEATED RED BLOOD CELLS 22 /100 WBC
[2019-02-16 07:44] LABS: PLATELET ESTIMATE MARKEDLY DECREASED
[2019-02-16 08:13] LABS: BG BASE EXCESS -4.8 mmol/L (-2.0-2.0); BG CARBOXYHEMOGLOBIN 0.2 % (0.5-1.5); BG DEOXYHEMOGLOBIN 12.9 % (0.0-5.0); BG FRACTION INSPIRED OXYGEN 50; BG HCO3 ACT 18.4 mmol/L (22.0-26.0); BG METHEMOGLOBIN 0.4 % (0.0-1.5); BG OXYHEMOGLOBIN 86.5 % (94.0-97.0); BG PCO2 27.9 mmHg (35.0-45.0); BG PH 7.436 (7.350-7.450); BG PO2 53.4 mmHg (75.0-100.0); BG SAMPLE SITE RIGHT RADIAL; BG TIDAL VOLUME(mL) 450 mL; BG TOTAL HEMOGLOBIN 10.9 g/dL (12.0-18.0); BG VENT MODE VENT - A/C; BG VENT RATE 12 set
[2019-02-16] MEDS ORDERED: MAGNESIUM 2 G PREMIX 50 ML IV NR ×2 (09:00→09:30)
[2019-02-16] MEDS: VANCOMYCIN 750 MG PREMIX 150 ML IV SCH ×2 (09:37→20:08)
[2019-02-16] MEDS: INSULIN GLARGINE UD 100 UNITS/ML SYR SUBCUT SCH (09:38)
[2019-02-16] MEDS: LORAZEPAM 2MG/ML CPJ IV PRN (11:34)
[2019-02-16] MEDS: LANSOPRAZOLE 30MG DR CAPSULE GT SCH (12:05)
[2019-02-16] MEDS: MICAFUNGIN 100 MG in SODIUM CHLORIDE 0.9% 100 ML IV SCH (17:06)
[2019-02-17] VITALS (58 sets, daily range): BP systolic 82–133; BP diastolic 49–73
[2019-02-17] MEDS: PIPERACILLIN/TAZ 3.375G PREMIX 50 ML IV SCH ×3 (01:28→17:49)
[2019-02-17] MEDS: IPRATROPIUM/ALBUTEROL 0.5-3(2.5)MG/3ML NEB HHN SCH ×3 (01:58→20:12)
[2019-02-17] MEDS: BLOOD SUGAR DIAGNOSTIC STRIP TEST SCH ×4 (05:17→23:35)
[2019-02-17] MEDS: SODIUM CHLORIDE 0.9% INJ 3ML FLUSH IVF SCH ×3 (05:17→22:00)
[2019-02-17] MEDS: INSULIN LISPRO 100 UNITS/ML SUBCUT SCH ×4 (05:20→23:37)
[2019-02-17 05:36] LABS: CHLORIDE 108 mEq/L (98-107)
[2019-02-17 05:42] LABS: HEMATOCRIT. 30.8 % (36.0-48.0); HEMOGLOBIN. 10.5 g/dL (12.0-16.0); MEAN CORPUSCULAR HEMOGLOBIN 27.3 pg (28.0-32.0); MEAN CORPUSCULAR VOLUME 80.3 fL (81.0-99.0); MEAN PLATELET VOLUME 8.6 fl (7.4-10.4); RED BLOOD CELL COUNT 3.83 mill/uL (4.2-5.4); RED CELL DISTRIBUTION WIDTH 20.4 % (11.6-14.6)
[2019-02-17] MEDS: DEXT 5%/0.45% NACL KCL 30MEQ/L 1,000 ML IV SCH (06:53)
[2019-02-17 07:36] LABS: NUCLEATED RED BLOOD CELLS 35 /100 WBC
[2019-02-17 07:37] LABS: PLATELET ESTIMATE MARKEDLY DECREASED
[2019-02-17 07:38] LABS: PLATELET 27 x1000/uL (130-400)
[2019-02-17] MEDS: VANCOMYCIN 750 MG PREMIX 150 ML IV SCH ×2 (08:59→19:12)
[2019-02-17] MEDS: INSULIN GLARGINE UD 100 UNITS/ML SYR SUBCUT SCH (09:37)
[2019-02-17] MEDS: SODIUM CHLORIDE 0.45% 1,000 ML IV SCH (09:44)
[2019-02-17 09:58] LABS: BG BASE EXCESS -5.2 mmol/L (-2.0-2.0); BG CARBOXYHEMOGLOBIN 0.4 % (0.5-1.5); BG DEOXYHEMOGLOBIN 9.3 % (0.0-5.0); BG FRACTION INSPIRED OXYGEN 60; BG HCO3 ACT 17.5 mmol/L (22.0-26.0); BG OXYGEN SATURATION 90.7 % (92.0-98.5); BG OXYHEMOGLOBIN 90.3 % (94.0-97.0); BG PCO2 25.1 mmHg (35.0-45.0); BG PO2 60.2 mmHg (75.0-100.0); BG SAMPLE SITE RIGHT RADIAL; BG TIDAL VOLUME(mL) 450 mL; BG TOTAL HEMOGLOBIN 9.8 g/dL (12.0-18.0); BG VENT MODE VENT - A/C
[2019-02-17] MEDS ORDERED: MAGNESIUM 2 G PREMIX 50 ML IV NR (10:00)
[2019-02-17] MEDS: METOCLOPRAMIDE HCL 5MG TABLET PO SCH ×3 (11:52→23:27)
[2019-02-17] MEDS: LORAZEPAM 2MG/ML CPJ IV PRN (12:01)
[2019-02-17] MEDS: LANSOPRAZOLE 30MG DR CAPSULE GT SCH (12:01)
[2019-02-17] MEDS ORDERED: SODIUM BICARBONATE 50 MEQ in DEXTROSE 5% WATER 1,000 ML IV SCH (15:31)
[2019-02-17] MEDS: MICAFUNGIN 100 MG in SODIUM CHLORIDE 0.9% 100 ML IV SCH (15:42)
[2019-02-17] MEDS: FENTANYL CITRATE/PF 500 MCG in SODIUM CHLORIDE 0.9% 40 ML IV PRN (15:43)
[2019-02-18] VITALS (46 sets, daily range): BP systolic 79–114; BP diastolic 42–65
[2019-02-18] MEDS: PIPERACILLIN/TAZ 3.375G PREMIX 50 ML IV SCH ×3 (01:14→17:25)
[2019-02-18] MEDS: IPRATROPIUM/ALBUTEROL 0.5-3(2.5)MG/3ML NEB HHN SCH ×4 (01:34→19:45)
[2019-02-18] MEDS: METOCLOPRAMIDE HCL 5MG TABLET PO SCH ×3 (05:03→17:03)
[2019-02-18] MEDS: SODIUM CHLORIDE 0.45% 1,000 ML IV SCH (05:03)
[2019-02-18] MEDS: SODIUM CHLORIDE 0.9% INJ 3ML FLUSH IVF SCH ×3 (05:19→21:30)
[2019-02-18] MEDS: BLOOD SUGAR DIAGNOSTIC STRIP TEST SCH ×3 (05:19→17:20)
[2019-02-18] MEDS: INSULIN LISPRO 100 UNITS/ML SUBCUT SCH ×3 (05:19→17:08)
[2019-02-18 05:47] LABS: HEMATOCRIT. 29.4 % (36.0-48.0); HEMOGLOBIN. 9.9 g/dL (12.0-16.0); MEAN CORPUSCULAR HEMOGLOBIN 27.2 pg (28.0-32.0); MEAN PLATELET VOLUME 8.9 fl (7.4-10.4); RED BLOOD CELL COUNT 3.63 mill/uL (4.2-5.4); RED CELL DISTRIBUTION WIDTH 20.1 % (11.6-14.6)
[2019-02-18] MEDS: FENTANYL CITRATE/PF 500 MCG in SODIUM CHLORIDE 0.9% 40 ML IV PRN ×2 (05:59→17:19)
[2019-02-18 06:02] LABS: CHLORIDE 106 mEq/L (98-107)
[2019-02-18 06:09] LABS: PHOSPHORUS 4.3 mg/dL (2.5-4.9)
[2019-02-18] MEDS: LORAZEPAM 2MG/ML CPJ IV PRN (06:15)
[2019-02-18 06:47] LABS: PLATELET 14 x1000/uL (130-400)
[2019-02-18 07:29] LABS: NUCLEATED RED BLOOD CELLS 79 /100 WBC; PLATELET ESTIMATE MARKEDLY DECREASED
[2019-02-18] MEDS: VANCOMYCIN 750 MG PREMIX 150 ML IV SCH (07:57)
[2019-02-18 08:26] LABS: BG BASE EXCESS -5.5 mmol/L (-2.0-2.0); BG DEOXYHEMOGLOBIN 1.7 % (0.0-5.0); BG FRACTION INSPIRED OXYGEN 80; BG HCO3 ACT 17.8 mmol/L (22.0-26.0); BG METHEMOGLOBIN 0.1 % (0.0-1.5); BG OXYGEN SATURATION 98.3 % (92.0-98.5); BG OXYHEMOGLOBIN 98.2 % (94.0-97.0); BG PCO2 27.5 mmHg (35.0-45.0); BG PH 7.429 (7.350-7.450); BG PO2 135.1 mmHg (75.0-100.0); BG SAMPLE SITE RIGHT RADIAL; BG TIDAL VOLUME(mL) 450 mL; BG TOTAL HEMOGLOBIN 9.7 g/dL (12.0-18.0); BG VENT MODE VENT - A/C; BG VENT RATE 12 set
[2019-02-18] MEDS: INSULIN GLARGINE UD 100 UNITS/ML SYR SUBCUT SCH (09:27)
[2019-02-18] MEDS: LANSOPRAZOLE 30MG DR CAPSULE GT SCH (13:08)
[2019-02-18] MEDS: MICAFUNGIN 100 MG in SODIUM CHLORIDE 0.9% 100 ML IV SCH (15:16)
[2019-02-19] VITALS (62 sets, daily range): BP systolic 84–125; BP diastolic 40–71
[2019-02-19] MEDS: BLOOD SUGAR DIAGNOSTIC STRIP TEST SCH ×4 (00:13→18:00)
[2019-02-19] MEDS: METOCLOPRAMIDE HCL 5MG TABLET PO SCH ×4 (00:17→19:16)
[2019-02-19] MEDS: INSULIN LISPRO 100 UNITS/ML SUBCUT SCH ×4 (00:17→18:00)
[2019-02-19] MEDS: SODIUM CHLORIDE 0.45% 1,000 ML IV SCH ×2 (00:18→20:51)
[2019-02-19] MEDS: IPRATROPIUM/ALBUTEROL 0.5-3(2.5)MG/3ML NEB HHN SCH ×4 (01:59→19:48)
[2019-02-19] MEDS ORDERED: VANCOMYCIN 1 G PREMIX 200 ML IV SCH (02:00)
[2019-02-19] MEDS: PIPERACILLIN/TAZ 3.375G PREMIX 50 ML IV SCH ×3 (02:13→17:22)
[2019-02-19] MEDS: FENTANYL CITRATE/PF 500 MCG in SODIUM CHLORIDE 0.9% 40 ML IV PRN ×3 (02:55→21:19)
[2019-02-19 04:33] LABS: HEMATOCRIT. 23.1 % (36.0-48.0); MEAN CORPUSCULAR VOLUME 80.7 fL (81.0-99.0); MEAN PLATELET VOLUME 8.5 fl (7.4-10.4); PLATELET 55 x1000/uL (130-400); RED BLOOD CELL COUNT 2.86 mill/uL (4.2-5.4); RED CELL DISTRIBUTION WIDTH 20.6 % (11.6-14.6)
[2019-02-19 04:40] LABS: CHLORIDE 105 mEq/L (98-107)
[2019-02-19 04:45] LABS: PHOSPHORUS 4.6 mg/dL (2.5-4.9)
[2019-02-19 05:30] LABS: BG BASE EXCESS -6.4 mmol/L (-2.0-2.0); BG CARBOXYHEMOGLOBIN 0.7 % (0.5-1.5); BG DEOXYHEMOGLOBIN 5.8 % (0.0-5.0); BG FRACTION INSPIRED OXYGEN 70; BG HCO3 ACT 18.5 mmol/L (22.0-26.0); BG METHEMOGLOBIN 0.3 % (0.0-1.5); BG OXYGEN SATURATION 94.1 % (92.0-98.5); BG OXYHEMOGLOBIN 93.2 % (94.0-97.0); BG PH 7.353 (7.350-7.450); BG PO2 81.3 mmHg (75.0-100.0); BG SAMPLE SITE RIGHT RADIAL; BG TIDAL VOLUME(mL) 450 mL; BG TOTAL HEMOGLOBIN 8.5 g/dL (12.0-18.0); BG VENT MODE VENT - A/C; BG VENT RATE 12 set
[2019-02-19] MEDS: SODIUM CHLORIDE 0.9% INJ 3ML FLUSH IVF SCH ×3 (05:31→22:39)
[2019-02-19 06:51] LABS: NUCLEATED RED BLOOD CELLS 48 /100 WBC
[2019-02-19 06:52] LABS: PLATELET ESTIMATE DECREASED
[2019-02-19] MEDS: INSULIN GLARGINE UD 100 UNITS/ML SYR SUBCUT SCH (09:07)
[2019-02-19] MEDS: LANSOPRAZOLE 30MG DR CAPSULE GT SCH (12:43)
[2019-02-19] MEDS: MICAFUNGIN 100 MG in SODIUM CHLORIDE 0.9% 100 ML IV SCH (17:21)
[2019-02-19] MEDS ORDERED: VANCOMYCIN 1250MG in DEXTROSE 5% WATER 250ML IV SCH (20:00)
[2019-02-20] VITALS (45 sets, daily range): BP systolic 72–115; BP diastolic 40–63
[2019-02-20] MEDS: METOCLOPRAMIDE HCL 5MG TABLET PO SCH ×3 (00:22→12:02)
[2019-02-20] MEDS: INSULIN LISPRO 100 UNITS/ML SUBCUT SCH ×3 (00:23→12:00)
[2019-02-20] MEDS: BLOOD SUGAR DIAGNOSTIC STRIP TEST SCH ×3 (00:23→12:02)
[2019-02-20] MEDS: PIPERACILLIN/TAZ 3.375G PREMIX 50 ML IV SCH ×2 (01:50→11:35)
[2019-02-20] MEDS: IPRATROPIUM/ALBUTEROL 0.5-3(2.5)MG/3ML NEB HHN SCH ×3 (02:01→14:32)
[2019-02-20] MEDS: FENTANYL CITRATE/PF 500 MCG in SODIUM CHLORIDE 0.9% 40 ML IV PRN ×2 (03:00→11:24)
[2019-02-20] MEDS: SODIUM CHLORIDE 0.9% INJ 3ML FLUSH IVF SCH (05:58)
[2019-02-20 06:42] LABS: CHLORIDE 103 mEq/L (98-107)
[2019-02-20 06:49] LABS: HEMATOCRIT. 22.5 % (36.0-48.0); HEMOGLOBIN. 7.3 g/dL (12.0-16.0); MEAN CORPUSCULAR HEMOGLOBIN 26.3 pg (28.0-32.0); MEAN CORPUSCULAR VOLUME 80.8 fL (81.0-99.0); RED BLOOD CELL COUNT 2.79 mill/uL (4.2-5.4); RED CELL DISTRIBUTION WIDTH 20.5 % (11.6-14.6)
[2019-02-20 08:41] LABS: NUCLEATED RED BLOOD CELLS 30 /100 WBC
[2019-02-20 08:42] LABS: PLATELET ESTIMATE MARKEDLY DECREASED
[2019-02-20 08:43] LABS: MEAN PLATELET VOLUME 8.5 fl (7.4-10.4)
[2019-02-20 08:45] LABS: PLATELET 22 x1000/uL (130-400)
[2019-02-20] MEDS: INSULIN GLARGINE UD 100 UNITS/ML SYR SUBCUT SCH (11:48)
[2019-02-20] MEDS: LANSOPRAZOLE 30MG DR CAPSULE GT SCH (12:02)
[2019-02-20] MEDS ORDERED: VANCOMYCIN 1250MG in DEXTROSE 5% WATER 250ML IV SCH (21:00)
== END 2019-02-20 16:56 | disposition expired | DRG 870 ==
LOC: ER 13:30 → CVICU 15:28 → EDBEDREQ 15:49 → ENRESERV 21:37 → CVICU 02-13 00:53
PROVIDERS: ADMIT Family Medicine; ATTEND Family Medicine
PROC: 5A1955Z Respiratory Ventilation, Greater than 96 Consecutive Hours (ICD-10-PCS; principal; 2019-02-12)
PROC: 0BH17EZ Insertion of Endotracheal Airway into Trachea, Via Natural or Artificial Opening (ICD-10-PCS; 2019-02-12)
PROC: 06HY33Z Insertion of Infusion Device into Lower Vein, Percutaneous Approach (ICD-10-PCS; 2019-02-12)
PROC: 30233R1 Transfusion of Nonautologous Platelets into Peripheral Vein, Percutaneous Approach (ICD-10-PCS; 2019-02-14)
PROC: 30233N1 Transfusion of Nonautologous Red Blood Cells into Peripheral Vein, Percutaneous Approach (ICD-10-PCS; 2019-02-14)
DX: A41.9 Sepsis, unspecified organism (principal); E43 Unspecified severe protein-calorie malnutrition; R65.21 Severe sepsis with septic shock; J96.01 Acute respiratory failure with hypoxia; J18.9 Pneumonia, unspecified organism; I62.03 Nontraumatic chronic subdural hemorrhage; D68.9 Coagulation defect, unspecified; K92.2 Gastrointestinal hemorrhage, unspecified; E87.0 Hyperosmolality and hypernatremia; E87.2 Acidosis; C16.9 Malignant neoplasm of stomach, unspecified; C79.51 Secondary malignant neoplasm of bone; C78.7 Secondary malignant neoplasm of liver and intrahepatic bile duct; C79.31 Secondary malignant neoplasm of brain; N17.9 Acute kidney failure, unspecified; J91.0 Malignant pleural effusion; E87.5 Hyperkalemia; D50.9 Iron deficiency anemia, unspecified; D69.6 Thrombocytopenia, unspecified; E86.0 Dehydration; G25.3 Myoclonus; E78.1 Pure hyperglyceridemia; Z66 Do not resuscitate; N20.0 Calculus of kidney; I10 Essential (primary) hypertension; M19.90 Unspecified osteoarthritis, unspecified site; D64.9 Anemia, unspecified; C50.919 Malignant neoplasm of unspecified site of unspecified female breast; E11.65 Type 2 diabetes mellitus with hyperglycemia; H02.401 Unspecified ptosis of right eyelid; H49.01 Third [oculomotor] nerve palsy, right eye; R59.0 Localized enlarged lymph nodes; K80.20 Calculus of gallbladder without cholecystitis without obstruction; N28.1 Cyst of kidney, acquired; R74.0 Nonspecific elevation of levels of transaminase and lactic acid dehydrogenase [LDH]; B37.9 Candidiasis, unspecified; D50.0 Iron deficiency anemia secondary to blood loss (chronic); E86.1 Hypovolemia; K44.9 Diaphragmatic hernia without obstruction or gangrene; Z92.3 Personal history of irradiation; Z88.2 Allergy status to sulfonamides; Z87.442 Personal history of urinary calculi; Z86.73 Personal history of transient ischemic attack (TIA), and cerebral infarction without residual deficits; Z82.49 Family history of ischemic heart disease and other diseases of the circulatory system; Z68.24 Body mass index [BMI] 24.0-24.9, adult
CPT/HCPCS: 31500; 36415; 36556; 36600; 71045; 76700; 80048; 80061; 80202; 82140; 82375; 82805; 82962; 83605; 83735; 83880; 84100; 84145; 84478; 84484; 85014; 85018; 85027; 85044; 85049; 86850; 86900; 86920; 87070; 87077; 93005; 93970; 94002; 94003; 94640; 96365; 96368; 96375; 99291; C9113; J0330; J1815; J1940; J1956; J2060; J2248; J2270; J2354; J2543; J2704; J3010; J3370; J3411; J3430; J3475; J3480; J3490; J7030; J7040; J7050; J7060; J7070; J7620; J8597; P9016; P9021; P9034; A4315